=== PATIENT | male | born 1940 | race Hispanic/Latino ===

== ENCOUNTER → 2018-11-29 | Outpatient (CLI) | payer OTHER ==
[~2018-11-29] MED LIST: ASPI-1012 PO; ATOR10TA69 PO; GABA-529 PO; GLIP5TAB11 PO; LISI-613 PO; METF-446 PO; METOPROLOL PO; TAMS-1 PO; albuterol
== END | disposition home or self-care (01) ==
LOC: SHCH 14:08
PROVIDERS: ATTEND Internal Medicine Cardiovascular Disease
DX: I35.0 Nonrheumatic aortic (valve) stenosis (principal); I10 Essential (primary) hypertension
CPT/HCPCS: 93306

== ENCOUNTER → 2018-12-02 | Outpatient (CLI) | payer OTHER ==
[~2018-12-02] MED LIST changes: -albuterol
== END | disposition home or self-care (01) ==
LOC: SHCH 14:00
PROVIDERS: ATTEND Internal Medicine Cardiovascular Disease
DX: I73.9 Peripheral vascular disease, unspecified (principal)
CPT/HCPCS: 93925

== ENCOUNTER 2019-05-17 06:31 | Day surgery (SDC) | payer OTHER ==
[~2019-05-17] VITALS: Ht 167.6 cm; Wt 72.6 kg
[~2019-05-17 06:31] MED LIST changes: +SODIUM CHLORIDE 0.9% 1000ML 1,000 ML IV ONE
[2019-05-17 07:21] VITALS: BP 119/69
[2019-05-17] MEDS ORDERED: albuterol (07:33)
[2019-05-17] MEDS ORDERED: PROPOFOL 10 MG/ML 20ML VIAL IV ONE (08:38)
[2019-05-17 09:00] VITALS: BP 84/57
[2019-05-17 09:05] VITALS: BP 94/40
[2019-05-17 09:10] VITALS: BP 95/50
[2019-05-17 09:15] VITALS: BP 106/52
[2019-05-17 09:20] VITALS: BP 116/63
== END 2019-05-17 09:28 | disposition home or self-care (01) ==
LOC: ENDO 06:31 → DAH 06:31 → ENDO 09:28
PROVIDERS: ATTEND Internal Medicine
DX: D12.2 Benign neoplasm of ascending colon (principal); D12.3 Benign neoplasm of transverse colon; K59.00 Constipation, unspecified; E11.9 Type 2 diabetes mellitus without complications; I10 Essential (primary) hypertension; I25.10 Atherosclerotic heart disease of native coronary artery without angina pectoris; E78.5 Hyperlipidemia, unspecified; F17.210 Nicotine dependence, cigarettes, uncomplicated; Z90.49 Acquired absence of other specified parts of digestive tract; Z98.890 Other specified postprocedural states; Z95.5 Presence of coronary angioplasty implant and graft; Z79.84 Long term (current) use of oral hypoglycemic drugs; Z79.899 Other long term (current) drug therapy; Z72.89 Other problems related to lifestyle; Z86.010 Personal history of colon polyps; Z83.3 Family history of diabetes mellitus
CPT/HCPCS: 45385; 82948 ×2; 88305; A4606; J2704; J7030

== ENCOUNTER 2020-05-05 10:13 | Emergency (ER) | payer OTHER ==
[~2020-05-05 10:13] MED LIST changes: -GABA-529 PO; -SODIUM CHLORIDE 0.9% 1000ML 1,000 ML IV ONE; +albuterol
[2020-05-05] MEDS ORDERED: FLUORESCEIN SODIUM 1 STRIP STRIP ONE (11:40)
[2020-05-05 11:50] LABS: BASOPHILS % (AUTO) 0.2 % (0.0-5.0); EOSINOPHILS % (AUTO) 0.1 % (0.0-8.0); HEMATOCRIT 40.6 % (42-54); INR 0.91 (0.85-1.15); MEAN CORPUSCULAR HGB CONC 33.7 g/dL (32.0-36.0); MONOCYTES % (AUTO) 4.1 % (3.0-13.0); PARTIAL THROMBOPLASTIN TIME 26.8 SEC (26.3-35.5); PLATELET COUNT (AUTO) 261 K/uL (130-400); PROTHROMBIN TIME 9.9 SEC (9.6-11.6); RED BLOOD CELL COUNT(AUTO) 4.56 MIL/uL (4.50-6.20); WHITE BLOOD COUNT (AUTO) 10.2 K/uL (4.8-10.8)
[2020-05-05] MEDS ORDERED: ONDANSETRON HCL 4 MG/2 ML VIAL ONE (11:56)
[2020-05-05] MEDS ORDERED: MORPHINE SULFATE 2 MG/ML 1ML SYG ONE (11:57)
[2020-05-05 12:18] LABS: ALBUMIN 3.5 g/dL (3.5-5.0); CREATININE 0.9 mg/dL (0.5-1.5); POTASSIUM 5.1 mmol/L (3.5-5.1)
[2020-05-05] MEDS ORDERED: TIMOLOL MALEATE 0.5% 5 ML BOTTLE ONE (12:57)
[2020-05-05] MEDS ORDERED: AcetaZOLAMIDE 250 MG TAB ONE ×2 (12:57→16:48)
[2020-05-05 13:00] LABS: BILIRUBIN,TOTAL 0.7 mg/dL (0.2-1.0); TOTAL PROTEIN, SERUM 7.4 g/dL (6.0-8.3)
[2020-05-05] MEDS ORDERED: BRIMONIDINE TARTRATE 0.2% 5 ML BOTTLE ONE (13:00)
[2020-05-05] MEDS ORDERED: PILOCARPINE HCL 2% 15 ML DROPS ONE (15:26)
[2020-05-05] MEDS ORDERED: MANNITOL 25% 50ML VIAL ONE (15:38)
[2020-05-05] MEDS ORDERED: ACETAMINOPHEN EXTRA STRENGTH 500 MG TABLET ONE (16:48)
[2020-05-05] MEDS ORDERED: PREDNISOLONE ACETATE 1% 5ML DROPS.SUSP OP SCH (17:00)
== END 2020-05-05 18:43 | disposition home or self-care (01) ==
LOC: EDH 10:13
DX: H40.211 Acute angle-closure glaucoma, right eye (principal); I10 Essential (primary) hypertension; E11.9 Type 2 diabetes mellitus without complications; Z72.0 Tobacco use
CPT/HCPCS: 36415; 70450; 71045; 80053; 82550; 84484; 85025; 85610; 85651; 85730; 93005; 96365; 96366; 96375; 99285; J2150; J2405; J7510

== ENCOUNTER → 2020-06-17 | Outpatient (CLI) | payer OTHER ==
[~2020-06-17] MED LIST changes: +GADODIAMIDE 10 MMOL/20 ML VIAL IV ONE
== END | disposition home or self-care (01) ==
LOC: RAH 13:37
PROVIDERS: ATTEND Family Medicine
DX: H53.9 Unspecified visual disturbance (principal)
CPT/HCPCS: 70553; A9579

== ENCOUNTER 2021-08-31 09:18 | Emergency (ER) | payer OTHER ==
[~2021-08-31] VITALS: Ht 165.1 cm; Wt 63.5 kg
[~2021-08-31 09:18] MED LIST changes: -GADODIAMIDE 10 MMOL/20 ML VIAL IV ONE; -LISI-613 PO; +LISI20TA24 PO
[2021-08-31] MEDS ORDERED: TETRACAINE HCL 0.5% 4 ML OPHTH SOLN ONE (10:21)
[2021-08-31] MEDS ORDERED: FLUORESCEIN SODIUM 1 STRIP STRIP ONE (10:21)
[2021-08-31] MEDS ORDERED: ONDANSETRON 4MG INJ ONE (10:22)
[2021-08-31] MEDS ORDERED: MORPHINE 2 MG SYG ONE ×2 (10:22→11:40)
[2021-08-31 10:29] LABS: BASOPHILS % (AUTO) 0.2 % (0.0-5.0); EOSINOPHILS % (AUTO) 1.1 % (0.0-8.0); HEMATOCRIT 38.2 % (42-54); LYMPHOCYTES % (AUTO) 13.2 % (21.0-51.0); MEAN CORPUSCULAR HEMOGLOBIN 28.4 pg (27.0-33.0); MEAN CORPUSCULAR HGB CONC 31.9 g/dL (32.0-36.0); MONOCYTES % (AUTO) 5.7 % (3.0-13.0); NEUTROPHILS % (AUTO) 79.4 % (40.0-77.0); PLATELET COUNT (AUTO) 306 K/uL (130-400); RED BLOOD CELL COUNT(AUTO) 4.29 MIL/uL (4.50-6.20); RED CELL DISTRIBUTION WIDTH 13.3 % (11.0-15.5); WHITE BLOOD COUNT (AUTO) 9.6 K/uL (4.8-10.8)
[2021-08-31] MEDS ORDERED: FLUORESCEIN SODIUM 1 STRIP STRIP OP ONE (10:30)
[2021-08-31] MEDS ORDERED: ONDANSETRON 4MG INJ IVP ONE (10:30)
[2021-08-31] MEDS ORDERED: MORPHINE 2 MG SYG IVP ONE (10:30)
[2021-08-31] MEDS ORDERED: TETRACAINE HCL 0.5% 4 ML OPHTH SOLN OP ONE (10:30)
[2021-08-31 10:37] LABS: CREATININE 0.9 mg/dL (0.5-1.5); POTASSIUM 4.3 mmol/L (3.5-5.1)
[2021-08-31 10:39] LABS: INR 0.98 (0.85-1.15); PROTHROMBIN TIME 10.7 SEC (9.6-11.6)
[2021-08-31 10:42] LABS: ALBUMIN 3.1 g/dL (3.5-5.0); BILIRUBIN,TOTAL 0.4 mg/dL (0.2-1.0); TOTAL PROTEIN, SERUM 6.7 g/dL (6.0-8.3)
[2021-08-31] MEDS ORDERED: TIMOLOL MALEATE 0.25% 5 ML BOTTLE OS ONE (12:00)
[2021-08-31] MEDS ORDERED: AcetaZOLAMIDE 250 MG TAB PO ONE (12:00)
[2021-08-31] MEDS ORDERED: MORPHINE 2 MG SYG IVP SCH (12:00)
[2021-08-31] MEDS ORDERED: ACETAZOLAMIDE SODIUM 500 MG VIAL ONE (12:04)
[2021-08-31] MEDS ORDERED: TIMOLOL MALEATE 0.25% 5 ML BOTTLE ONE (12:04)
[2021-08-31] MEDS ORDERED: ACETAZOLAMIDE SODIUM 500 MG VIAL IV ONE (12:30)
[2021-08-31] MEDS ORDERED: PILOCARPINE HCL 2% 15 ML DROPS OS SCH (13:30)
[2021-08-31] MEDS ORDERED: HYDROCODONE/ACETAMINOPHEN 5/325 MG TAB PO ONE (14:00)
[2021-08-31] MEDS ORDERED: COSO10OS OS (14:52)
[2021-08-31] MEDS ORDERED: ACET1TAB25 PO (14:52)
[2021-08-31] MEDS ORDERED: ACET500C51 PO (14:52)
[2021-08-31] MEDS ORDERED: PILO15DR48 OP (14:52)
[2021-08-31] MEDS ORDERED: ONDA4TAB10 PO (14:52)
[2021-08-31 15:09] VITALS: BP 130/57
== END 2021-08-31 15:15 | disposition home or self-care (01) ==
LOC: EDH 09:18
DX: E11.39 Type 2 diabetes mellitus with other diabetic ophthalmic complication (principal); H40.9 Unspecified glaucoma; I10 Essential (primary) hypertension; R51.9 Headache, unspecified; Z79.82 Long term (current) use of aspirin; Z79.84 Long term (current) use of oral hypoglycemic drugs; Z79.899 Other long term (current) drug therapy; Z90.49 Acquired absence of other specified parts of digestive tract
CPT/HCPCS: 36415; 70450; 70480; 80053; 85025; 85610; 96374; 96375; 96376; 99284; J1120; J2405